=== PATIENT | male | born 1975 | race Caucasian/White ===

== ENCOUNTER → 2016-12-12 | Outpatient (CLI) | payer BC ==
[2016-12-12 12:44] LABS: BLOOD UREA NITROGEN 10 mg/dl (7-18); BUN/CREATININE RATIO 9.6 (10-20); CARBON DIOXIDE 24 mmol/L (21-32); CHLORIDE 105 mmol/L (98-107); CREATININE 0.99 mg/dl (0.60-1.40); GLUCOSE 186 mg/dl (70-99); SODIUM 139 mmol/L (136-145)
== END | disposition home or self-care (01) ==
LOC: C.LABPVFM 07:28
PROVIDERS: ATTEND Nurse Practitioner
DX: Z51.81 Encounter for therapeutic drug level monitoring (principal); Z79.899 Other long term (current) drug therapy; F31.81 Bipolar II disorder

== ENCOUNTER → 2018-01-21 | Outpatient (CLI) | payer BC ==
--- NOTE | 2018-01-21 13:17 | DIAGNOSTIC IMAGING REPORT ---
CHEST 2 VIEWS ROUTINE CLINICAL HISTORY: 42 years-old Male presenting with bipolar ii disorder palpitations tachycardia. TECHNIQUE: PA and lateral views of the chest were obtained. COMPARISON: None. FINDINGS: Cardiomediastinal silhouette normal. Lungs and pleural spaces clear. Osseous structures normal. Upper abdomen normal. IMPRESSION: 1. No acute cardiopulmonary disease. Electronically signed by: Jacques Palomares M.D. 01/21/2018 1:16 PM Dictated Date/Time: 01/21/2018 1:15 PM
== END | disposition home or self-care (01) ==
LOC: C.RADPV 12:26
PROVIDERS: ATTEND Family Medicine
DX: F31.81 Bipolar II disorder (principal); R00.2 Palpitations; R00.0 Tachycardia, unspecified

== ENCOUNTER → 2018-05-14 | Outpatient (CLI) | payer BC ==
[2018-05-14 17:25] LABS: BASO % 0.7 %; BASO ABS # 0.09 K/uL (0-0.2); EOS % 3.9 %; EOS ABS # 0.51 K/uL (0-0.5); HEMATOCRIT 47.3 % (42-52); HEMOGLOBIN 16.6 g/dL (14.0-18.0); IG# 0.06 K/uL (0.00-0.02); LYMPH % 32.5 %; LYMPH ABS # 4.21 K/uL (1.2-3.4); MEAN CELL VOLUME 90.3 fL (80-100); MEAN CORPUSCULAR HEMOGLOBIN 31.7 pg (25-34); MEAN CORPUSCULAR HGB CONC 35.1 g/dl (32-36); MEAN PLATELET VOLUME 10.7 fL (7.4-10.4); MONO ABS # 1.16 K/uL (0.11-0.59); NEUT % 53.4 %; NEUT ABS # 6.93 K/uL (1.4-6.5); PLATELET COUNT 305 K/uL (130-400); RED CELL DISTRIBUTION WIDTH CV 13.2 % (11.5-14.5); RED CELL DISTRIBUTION WIDTH SD 42.9 fL (36.4-46.3); WHITE BLOOD COUNT 12.96 K/uL (4.8-10.8)
[2018-05-14 18:08] LABS: BLOOD UREA NITROGEN 12 mg/dl (7-18); CALCIUM 8.7 mg/dl (8.5-10.1); CARBON DIOXIDE 24 mmol/L (21-32); CREATININE 1.12 mg/dl (0.60-1.40); GLUCOSE 97 mg/dl (70-99); POTASSIUM 3.9 mmol/L (3.5-5.1); SODIUM 136 mmol/L (136-145)
== END | disposition home or self-care (01) ==
LOC: C.LABPVFM 16:06
PROVIDERS: ATTEND Nurse Practitioner
DX: R20.2 Paresthesia of skin (principal); R23.2 Flushing; R53.83 Other fatigue